=== PATIENT | female | born 1955 | race Caucasian/White ===

== ENCOUNTER 2017-09-26 11:28 | Emergency (ER) | payer OTHER ==
[~2017-09-26] VITALS: Ht 154.9 cm; Wt 81.7 kg
[~2017-09-26 11:28] MED LIST: NOHOMEMEDICATIONS
[2017-09-26] MEDS ORDERED: LEVOXYL50 MCG PO (11:41)
[2017-09-26 12:09] LABS: ABSOLUTE EOSINOPHILS 0.3 thou/uL (0.0-0.7); ABSOLUTE LYMPHOCYTES 1.1 thou/uL (0.8-5.3); ABSOLUTE MONOCYTES 0.4 thou/uL (0.0-1.2); ABSOLUTE NEUTROPHILS 3.6 thou/uL (1.6-8.1); BASOPHILS 0.8 %; EOSINOPHILS 5.4 %; HEMATOCRIT 23.1 % (37.0-47.0); LYMPHOCYTES 19.6 %; MCH 16.1 pg (26.0-34.0); MCHC 27.6 g/dL (28.0-37.0); MCV 58.3 fL (80.0-100.0); NUCLEATED RBCS 0 /100WBC; PLATELET COUNT* 214 thou/uL (150-400); POLYS 67.2 %; RBC 3.97 mil/uL (4.20-5.00); RDW-CV 21.7 % (10.5-14.5); WBC 5.4 thou/uL (4.0-11.0)
[2017-09-26 12:17] LABS: CALCIUM 9.5 mg/dL (8.5-10.1); CREATININE 0.7 mg/dL (0.6-1.3); POTASSIUM 4.2 mmol/L (3.5-5.1)
[2017-09-26 12:20] LABS: HEMOGLOBIN 6.4 gm/dL (12.0-15.0)
[2017-09-26 12:21] LABS: ALBUMIN 3.5 g/dL (3.4-5.0); TOTAL BILIRUBIN 0.6 mg/dL (<0.1-1.0); TOTAL PROTEIN 7.8 g/dL (6.4-8.2)
[2017-09-26 12:50] LABS: % SATURATION 2 % (20-39); IRON 13 ug/dL (50-175)
[2017-09-26 13:08] LABS: PLATELET ESTIMATE ADEQUATE
[2017-09-26 13:09] LABS: ANISOCYTOSIS 2+; HYPOCHROMASIA 2+; MICROCYTES 3+; OVALOCYTES 2+; POIKILOCYTOSIS 2+; TARGET CELLS Occasional
[2017-09-26 13:36] VITALS: BP 122/57
== END 2017-09-26 13:37 | disposition home or self-care (01) ==
LOC: M.ERS 11:28
PROVIDERS: Nurse Practitioner Psychiatric/Mental Health
DX: D64.9 Anemia, unspecified (principal); E03.9 Hypothyroidism, unspecified

== ENCOUNTER 2019-11-22 08:34 | Inpatient (IN) | payer OTHER ==
[~2019-11-22] VITALS: Ht 154.9 cm; Wt 86.2 kg
[~2019-11-22 08:34] MED LIST changes: +LEVOXYL50 MCG PO
[2019-11-22 08:52] VITALS: BP 176/76
[2019-11-22 09:11] LABS: URINE BILIRUBIN NEGATIVE (Negative); URINE BLOOD TRACE (Negative); URINE CLARITY CLEAR; URINE COLOR YELLOW; URINE GLUCOSE-RANDOM NEGATIVE (Negative); URINE KETONES NEGATIVE (Negative); URINE LEUKOCYTES-REFLEX NEGATIVE (Negative); URINE NITRITE-REFLEX NEGATIVE (Negative); URINE PROTEIN 1+ (Negative); URINE SPECIFIC GRAVITY 1.025 (1.005-1.030); URINE UROBILINOGEN 0.2 E.U./dl (0.2-1.0)
[2019-11-22 09:38] LABS: ABSOLUTE BASOPHILS 0.1 thou/uL (0.0-0.2); ABSOLUTE EOSINOPHILS 0.2 thou/uL (0.0-0.7); ABSOLUTE MONOCYTES 0.5 thou/uL (0.0-1.2); ABSOLUTE NEUTROPHILS 6.5 thou/uL (1.6-8.1); BASOPHILS 1.3 %; EOSINOPHILS 2.7 %; HEMATOCRIT 41.8 % (37.0-47.0); HEMOGLOBIN 14.1 gm/dL (12.0-15.0); LYMPHOCYTES 12.1 %; MCH 25.9 pg (26.0-34.0); MCHC 33.8 g/dL (28.0-37.0); MCV 76.7 fL (80.0-100.0); MONOCYTES 5.6 %; MPV 9.1 fl. (7.2-11.1); NUCLEATED RBCS 0 /100WBC; PLATELET COUNT* 171 thou/uL (150-400); POLYS 78.3 %; RBC 5.44 mil/uL (4.20-5.00); RDW-CV 23.4 % (10.5-14.5); WBC 8.3 thou/uL (4.0-11.0)
[2019-11-22 09:50] LABS: CREATININE 0.9 mg/dL (0.6-1.3); POTASSIUM 4.1 mmol/L (3.5-5.1)
[2019-11-22 09:53] LABS: ALBUMIN 3.6 g/dL (3.4-5.0); TOTAL BILIRUBIN 0.6 mg/dL (<0.1-1.0); TOTAL PROTEIN 7.8 g/dL (6.4-8.2)
[2019-11-22 15:23] VITALS: BP 144/67
[2019-11-22 15:40] VITALS: BP 98/75
--- NOTE | 2019-11-22 16:06 | EKG ---
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[id number] Requested By: Armaan Willis Order Number: [id number] MD: Ace Freeman Measurements Intervals [place] Rate: 59 P: -10 KS: 207 QRS: 19 QRSD: 106 T: 29 QT: 440 QTc: 436 Interpretive Statements Sinus rhythm small inferior Q waves, nondiagnostic Baseline wander in lead(s) III,aVF No previous ECG available for comparison Electronically Signed On 11-22-2019 16:05:29 CDT by Ace Freeman [email or web address] <ELECTRONICALLY SIGNED> By: Ace Freeman MD, [facility] 11/22/19 1605 0939 0939 Ace Freeman MD, [facility] /EPI
--- NOTE | 2019-11-22 16:12 | NUR ---
PT ADMITTED TO ROOM 116 AROUND 1530 WITH DX CHOLEDULCOLITHIASIS. PT HAS NO C/O PAIN ON ADMISSION. GIVEN FENTANYL IN ED THAT WAS EFFECTIVE WITH PAIN MANAGEMENT. GI AND GENERAL SURGERY CONSULTED. ANTICIPATE PT TO HAVE HIDA SCAN TOMORROW AT 1100. INSTRUCTED THAT PT MUST BE NPO FOR 6 HOURS PRIOR TO TEST AND TO HOLD ALL PAIN MEDICATION 4 HOURS PRIOR TO TEST. VSS. IVF INFUSING WITHOUT DIFFICULTY. NO OTHER CONCERNS AT THIS TIME. CLWR. WCTM.
[2019-11-22 20:00] VITALS: BP 138/64
--- NOTE | 2019-11-23 02:59 | NUR ---
PATIENT HAS REMAINED ALERT AND ORIENTED X 4 THROUGHOUT THE SHIFT AND RESTING QUIETLY ON HOURLY ROUNDS. NO ABDOMINAL PAIN OF THIS WRITING. ICE CHIPS EARLY IN SHIFT AND NPO AT MIDNIGHT FOR US THIS AM. VITAL SIGNS STABLE. IVF'S PER ORDER. UP INDEPENDENTLY IN THE ROOM WITH STEADY GAIT. CONTINUE TO MONITOR.
[2019-11-23 03:07] LABS: HEPATITIS B SURFACE AG Negative (Negative)
[2019-11-23 03:53] LABS: HEMATOCRIT 38.8 % (37.0-47.0); HEMOGLOBIN 12.8 gm/dL (12.0-15.0); MCH 25.5 pg (26.0-34.0); MCHC 32.9 g/dL (28.0-37.0); MCV 77.6 fL (80.0-100.0); MPV 9.2 fl. (7.2-11.1); RDW-CV 23.4 % (10.5-14.5); WBC 4.9 thou/uL (4.0-11.0)
[2019-11-23 04:11] LABS: ALBUMIN 3.1 g/dL (3.4-5.0); CALCIUM 8.5 mg/dL (8.5-10.1); CREATININE 0.9 mg/dL (0.6-1.3); POTASSIUM 3.6 mmol/L (3.5-5.1); TOTAL BILIRUBIN 0.6 mg/dL (<0.1-1.0); TOTAL PROTEIN 6.8 g/dL (6.4-8.2)
--- NOTE | 2019-11-23 05:58 | NUR ---
NO CHANGE FROM PREVIOUS ENTRY.
[2019-11-23 07:25] VITALS: BP 109/57
[2019-11-23 17:22] VITALS: BP 137/78
--- NOTE | 2019-11-23 17:35 | NUR ---
PT REMAINED ALERT AND ORIENTED. PT TO HAVE ERCP TOMORROW. NPO AFTER MIDNIGHT. PT IS STRESSED ABOUT SITUATION AND FAMILY STRESS. FALL RISK PRECAUTIONS IN PLACE. HOURLY ROUNDING COMPLETED. WILL CONTINUE TO MONITOR.
[2019-11-23 20:45] VITALS: BP 131/68
[2019-11-24 04:16] LABS: CALCIUM 8.4 mg/dL (8.5-10.1); CREATININE 0.8 mg/dL (0.6-1.3); MAGNESIUM 1.9 mg/dL (1.8-2.4); POTASSIUM 3.5 mmol/L (3.5-5.1); TOTAL BILIRUBIN 0.6 mg/dL (<0.1-1.0); TOTAL PROTEIN 6.7 g/dL (6.4-8.2)
--- NOTE | 2019-11-24 05:16 | NUR ---
PATIENT HAS REMAINED ALERT AND ORIENTED X 4 THROUGHOUT THE SHIFT AND RESTING QUIETLY ON HOURLY ROUNDS. UP INDEPENDENTLY IN THE ROOM. SOME STATED STOMACH DISCOMFORT SHE FEELS FROM NOT EATING. DENIES NAUSEA OR PAIN ASSOCIATED WITH HER GALLBLADDER ISSUES. TYLENOL PROVIDED X 1 FOR HEADACHE . VITAL SIGNS STABLE. PLANNED ERCP THIS AM. PATIENT VERBALZING ANXIETY/FRUSTRATION IN KNOWING WHAT SHE SHOULD DO IF SURGERY IS RECOMMENDED AND HAVING FINANCIAL CONCERNS WELL. PRE-PROCEDURE ROUTINES IN PROGRESS. CONTINUE TO MONITOR.
[2019-11-24 07:41] VITALS: BP 137/63
[2019-11-24] MEDS ORDERED: NORCO 5-325 TA1 EAC1 PO (08:20)
[2019-11-24 08:21] VITALS: BP 137/63
[2019-11-24 10:42] VITALS: BP 169/78
[2019-11-24 13:15] VITALS: BP 137/63
[2019-11-24 14:14] VITALS: BP 137/63
--- NOTE | 2019-11-24 14:15 | NUR ---
PT REMAINED ALERT AND ORIENTED. PT GIVEN DISCHARGE INFORMATION, CARE NOTES, AND PRESCRIPTIONS. IV REMOVED. PT BELONGINGS GATHERED. PT TOLERATED MEAL. FALL RISK PRECAUTIONS IN PLACE. HOURLY ROUNDING COMPLETED. PT LEFT VIA WHEELCHAIR WITH NURSING STAFF TO HOME.
[2019-11-24 14:29] VITALS: BP 137/63
--- NOTE | 2019-12-16 08:28 | CON ---
[address] [address] CONSULTATION Name: [address] Room: [address]#: [id number] Admission: 11/22/19 Attend Phys: Giovanny Salazar MD Discharge: 11/24/19 Date of : 57 Report #: [id number] THIS REPORT FOR: //name// cc: Imani Baxter MD, Ami MD ~ THIS REPORT FOR: //name// CC: Imani Salazar DATE OF SERVICE: 11/23/2019 HISTORY OF PRESENT ILLNESS: This is a pleasant 63-year-old female with past medical history significant for cholelithiasis, who is presenting for evaluation of acute abdominal pain. The patient reports the abdominal pain is located in the epigastric region. It is localized, radiates to the back and sometimes radiates to the right side, associated with nausea and vomiting. The patient reports she has had similar episodes in the past, but they would usually subside in less than 30-40 minutes, but this episode remained persistent, which prompted her hospital visit. The patient denies any fevers, chills, episodes of jaundice. The patient reports that she did have bile duct stones in the past, but they passed spontaneously and therefore nothing further was required. PAST MEDICAL HISTORY: Hypothyroidism. PAST SURGICAL HISTORY: . SOCIAL HISTORY: The patient denies recreational drug use and smoking, takes alcohol occasionally. FAMILY HISTORY: No family history of colon cancer or [place]-related neoplasia. REVIEW OF SYSTEMS: Comprehensive 10-point review of systems is negative except for what was mentioned in HPI. PHYSICAL EXAMINATION: VITAL SIGNS: Temperature 36.6, pulse rate 65, respirations 16, blood pressure 137/78. GENERAL: The patient is alert, awake, oriented x 3. HEENT: Pupils are equal, round, reactive to light and accommodation. Mucous membranes are moist. There is no congestion. LUNGS: Clear to auscultation bilaterally. CARDIOVASCULAR: Rate and rhythm regular, S1, S2 present. ABDOMEN: Soft. There is no distention, guarding or rigidity. Mild tenderness to deep palpation in the epigastric region. EXTREMITIES: Warm, well perfused. [place] [address] CONSULTATION Name: MCKENZIE STREETSARTHAK Simpson Room: [address] [id number] Admission: 11/22/19 Attend Phys: Giovanny Salazar MD Discharge: 11/24/19 Date of : 57 Report #: [id number] SKIN: Warm and dry. LABORATORY DATA: Hemoglobin 12.8, hematocrit 38.8, platelet count 143, WBC count 4.9. Sodium 141, potassium 3.6, chloride 108, bicarbonate 28, BUN 6, creatinine 0.9, total bilirubin 0.6, AST 84, ALT 99, alkaline phosphatase 97. IMAGING: MRCP abdomen, choledocholithiasis with 9-mm distal common bile duct stone ____ urinary tract with extrahepatic biliary ductal dilation. ASSESSMENT AND PLAN: Pleasant 63-year-old female with choledocholithiasis. I would recommend ERCP tomorrow. Further recommendations can be based on results of the ERCP. The patient was noted to have large recurrent fibroid or mass. We will recommend for her to get outpatient followup for the same. Thank you for this consultation. <ELECTRONICALLY SIGNED> By: Oleksandr Jerez MD 12/16/19 0828 [id number] Jerez MD /nt
== END 2019-11-24 14:30 | disposition home or self-care (01) | DRG 446 ==
LOC: M.ERS 08:34 → M.ORTHSURG 11:09 → M.TBA-ER 11:09 → M.ORTHSURG 15:30
PROVIDERS: Emergency Medicine Emergency Medical Services; ADMIT Internal Medicine; ATTEND Internal Medicine
PROC: 0FC98ZZ Extirpation of Matter from Common Bile Duct, Via Natural or Artificial Opening Endoscopic (ICD-10-PCS; principal; 2019-11-24)
DX: K80.11 Calculus of gallbladder with chronic cholecystitis with obstruction (principal); E03.9 Hypothyroidism, unspecified; E66.9 Obesity, unspecified; Z68.35 Body mass index [BMI] 35.0-35.9, adult; K80.20 Calculus of gallbladder without cholecystitis without obstruction; D25.9 Leiomyoma of uterus, unspecified; K42.9 Umbilical hernia without obstruction or gangrene; R74.0 Nonspecific elevation of levels of transaminase and lactic acid dehydrogenase [LDH]